=== PATIENT | male | born 1945 | race Caucasian/White ===

== ENCOUNTER 2019-10-07 12:13 | Outpatient (CLI) | payer MEDICARE, SELFPAY ==
[2019-10-08 01:51] LABS: COVID-19 RT-PCR UVMMC Result Negative (Negative)
== END 2019-10-07 12:33 ==
PROVIDERS: PCP Emergency Medicine; Visit Provider Emergency Medicine
DX: J06.9 Acute upper respiratory infection, unspecified (principal)
CPT/HCPCS: U0003